=== PATIENT | female | born 1940 | race Two or more races ===

== ENCOUNTER 2018-05-26 15:27 | Outpatient (CLI) | payer OTHER | END 2018-05-26 15:38 | disposition home or self-care (01) | LOC: RAD 501 15:27 | DX: M25.561 Pain in right knee (principal) ==

== ENCOUNTER → 2018-05-26 | Emergency (ER) | payer OTHER ==
[~2018-05-26] VITALS: Ht 152.4 cm; Wt 62.1 kg
== END | disposition home or self-care (01) ==
LOC: ER 12:36
DX: M17.0 Bilateral primary osteoarthritis of knee (principal); M54.5 Low back pain

== ENCOUNTER 2018-06-24 07:40 | Day surgery (SDC) | payer OTHER ==
[~2018-06-24 07:40] MED LIST: COZAAR50 MG PO; GABAPENTIN100 MG PO
== END 2018-06-24 16:15 | disposition home or self-care (01) ==
LOC: CIR.AMB 07:40
DX: M23.321 Other meniscus derangements, posterior horn of medial meniscus, right knee (principal); M12.261 Villonodular synovitis (pigmented), right knee; M22.11 Recurrent subluxation of patella, right knee

== ENCOUNTER 2018-08-10 12:55 | Outpatient (CLI) | payer OTHER | END 2018-08-10 13:00 | disposition home or self-care (01) | LOC: LAB 12:55 | DX: M06.4 Inflammatory polyarthropathy (principal); D64.89 Other specified anemias ==

== ENCOUNTER 2018-08-18 08:06 | Outpatient (CLI) | payer OTHER | END 2018-08-18 09:27 | disposition home or self-care (01) | LOC: LAB 08:06 | DX: D64.89 Other specified anemias (principal); M06.4 Inflammatory polyarthropathy; E55.9 Vitamin D deficiency, unspecified; M85.9 Disorder of bone density and structure, unspecified; E88.89 Other specified metabolic disorders; M81.8 Other osteoporosis without current pathological fracture; E56.1 Deficiency of vitamin K ==

== ENCOUNTER → 2018-08-18 | Outpatient (CLI) | payer OTHER | END | disposition home or self-care (01) | LOC: RAD 08:39 | DX: M17.11 Unilateral primary osteoarthritis, right knee (principal) ==

== ENCOUNTER → 2018-09-29 | Outpatient (CLI) | payer OTHER | END | disposition home or self-care (01) | LOC: RAD 10:42 | DX: M17.11 Unilateral primary osteoarthritis, right knee (principal) ==